=== PATIENT | female | born 1940 | race Caucasian/White ===

== ENCOUNTER 2025-04-22 12:56 | Outpatient (CLI) | payer MEDICARE, OTHER, SELFPAY ==
--- NOTE | ~2025-04-22 | CT_ITS ---
EXAMINATION: CT_LERTCHWO_CT DATE: 04/22/2025 13:46 INDICATION: Right hip osteoarthritis. Preoperative planning. TECHNIQUE: Computed tomography (CT) of the right hip was performed without intravenous contrast. Automated exposure control and iterative reconstruction technique were employed. The dose-length product was 1052.28 mGy-cm. COMPARISON: Right hip radiographs 06/20/2022 FINDINGS: There are no dilated loops of bowel. There is a 5.7 cm fibroid in the uterus. Alignment is normal. No fracture. There is severe lumbar spondylosis. There is severe right hip osteoarthritis and moderate left hip osteoarthritis. 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 IMPRESSION: 1. Severe right hip osteoarthritis and moderate left hip osteoarthritis. Reviewed, dictated and finalized at location E.
--- NOTE | 2025-04-22 13:14 | ECG_ITS ---
Test Date: 2025-04-22 13:26:40 Measurements Intervals [place] Rate: 65 P: 65 FL: 210 QRS: -7 QRSD: 114 T: 26 QT: 388 QTc: 406 Interpretive Statements SINUS RHYTHM WITH FIRST DEGREE AV BLOCK BORDERLINE ECG+ No previous ECG available for comparison Electronically Signed On 04-23-2025 15:48:33 CDT by Rock Salazar M.D.
[2025-04-22 13:56] LABS: Hematocrit 44.8 % (37.0-47.0); Hemoglobin 14.4 g/dL (12.0-15.0)
[2025-04-22 14:14] LABS: Albumin Level 3.7 g/dL (3.5-5.1); Estimated Glomerular Filt Rate > 60
== END 2025-04-22 12:57 | disposition home or self-care (01) ==
PROVIDERS: PCP Registered Nurse; Visit Provider Orthopaedic Surgery
DX: I50.9 Heart failure, unspecified (principal); M16.11 Unilateral primary osteoarthritis, right hip; Z01.818 Encounter for other preprocedural examination; M16.0 Bilateral primary osteoarthritis of hip
CPT/HCPCS: 36415; 73700; 82040; 82565; 85014; 85018; 93005

== ENCOUNTER 2025-06-16 09:25 | Outpatient (CLI) | payer MEDICARE, OTHER, SELFPAY ==
[2025-06-16 10:38] LABS: Hematocrit 44.7 % (37.0-47.0); Hemoglobin 14.5 g/dL (12.0-15.0); Immature Granulocyte Percent A 0.1 % (0-0.5); Lymphocytes Absolute Auto 3.12 K/mm3 (0.9-3.2); Mean Corpuscular HGB Conc 32.4 g/dl (32-36); Mean Corpuscular Hemoglobin 32.2 pg (26-34); Mean Corpuscular Volume 99.3 fl (80-100); Nucleated Red Blood Cells Absolute Auto 0.000 K/mm3 (0.0-0.012); Nucleated Red Blood Cells Perc 0.0 % (0.0-0.2); Platelet Count Result 267 k/mm3 (150-375); Red Blood Count 4.50 M/mm3 (4.2-5.4); White Blood Count 7.4 K/mm3 (4.5-10.0)
[2025-06-16 10:49] LABS: Albumin Level 3.9 g/dL (3.5-5.1)
[2025-06-16 10:51] LABS: Hemoglobin A1C 5.3 % (<5.7)
[2025-06-16 10:52] LABS: Anion Gap 4 mmol/L (4-12); Blood Urea Nitrogen 22 mg/dL (7-17); Calcium 8.9 mg/dL (8.4-10.2); Carbon Dioxide 31 mmol/L (22-30); Chloride 103 mmol/L (98-107); Estimated Glomerular Filt Rate > 60; Glucose 99 mg/dL (65-110); Potassium 4.0 mmol/L (3.4-5.0); Sodium 138 mmol/L (137-145)
[2025-06-16 11:58] LABS: MRSA (PCR) NOT DETECTED (NOT DETECTE)
== END 2025-06-16 09:26 | disposition home or self-care (01) ==
LOC: ANHSURGERY 09:26
PROVIDERS: Anesthesiology; PCP Registered Nurse; Visit Provider Orthopaedic Surgery
DX: M16.11 Unilateral primary osteoarthritis, right hip (principal); Z79.899 Other long term (current) drug therapy; Z01.818 Encounter for other preprocedural examination
CPT/HCPCS: 36415; 80048; 80307; 82040; 83036; 85025; 87641

== ENCOUNTER 2025-07-08 00:16 | Day surgery (SDC) | payer MEDICARE, OTHER, SELFPAY ==
[2025-06-16 09:46] VITALS: BP 154/77; PULSE 72; RESP 16; TEMP 36.5; O2SAT 98; BMI 35.6
--- NOTE | 2025-06-16 10:10 | PC.NURSE ---
[facility] has started construction of its new state of the art ER which will open Spring 2026. With this, we anticipate parking may be a challenge for some our surgical patients and families. Parking spaces are limited but are available for all Surgical, obstetrics, and ER patients sharing this lot. If you arrive and find you are having a hard time finding a parking space, please note that we understand the challenges, please drive around the hospital and park near Hospital Entrance 1. When you enter this entrance, you can ask a volunteer to direct or take you back to the surgical waiting area to check in. We appreciate everyone?s understanding of these expected challenges while we build for your future. Report to the Outpatient Waiting Room, entrance under the green pavilion located off [address], at time ___0800am____ on date __07/08/25 . Planned Procedure Time: __1000am .? Time changes happen often and if your time is changed the preop area will call you the afternoon before. - You and your visitor will be asked to self-screen and do not enter if you have any COVID symptoms. Please call surgeon if you need to reschedule. - A mask is optional within the hospital at this time. Patients may have clear liquids (water, carbonated beverages, clear teas, apple juice) until 3 hours prior to surgery with a maximum of 20 ounces. - No food from midnight until time of surgery and no smoking, or chewing tobacco (or any form of nicotine). No chewing gum, candy or mints. (07:00am) Take only the following medications with a SIP of water on the morning of surgery: Levothyroxine, Tylenol if needed DO NOT STOP ANY OF YOUR OTHER PRESCRIPTION MEDICATIONS PRIOR TO SURGERY EXCEPT THE FOLLOWING Hold all vitamins and supplements for 3 days per anesthesiologist. Medications to discontinue per physician NO ASPIRIN/MOTRIN/ADVIL/NSAIDS for [address] Rutledge Date to take last dose__06/30/25 Please no make-up, nail yakut, hairspray, perfume, deodorant, or body powder the day of surgery.? No jewelry (including any body piercings) or valuables the day of surgery, leave them at home.? Please take a shower or bath the night before, or the morning of, surgery with an antibacterial soap. GOLD DIAL ? Wear comfortable, loose fitting clothing.? Overnight bag, shoes, Robe, phone/Chrger - Jewelry must be removed prior to entering the operating room.? Rings and piercings that are not removed may be cut off. - The hospital will not accept responsibility for valuables.? - Please leave all valuables, including medications, at home the day of surgery. If you are going home after surgery, a licensed hook up driver must drive you home.? - NO public transportation without another adult if you receive anesthesia. - We recommend that an adult stay with you for 24 hours following discharge. - We also recommend that you do not drive, make important decision, drink alcoholic beverages, or take any drugs that were not prescribed by your health care provider for at least 24 hours after your discharge time. Follow any additional instructions given to you from your surgeon. Telephone instructions given to __Patient and asked if any additional questions and then verbalized understanding. Patient advised to call surgeon office or pre surgery nurse liaison [phone] if any additional questions.
[2025-07-08] VITALS (14 sets, daily range): BP systolic 106–177; BP diastolic 47–80; PULSE 58–85; RESP 12–20; TEMP 36.3–36.8; O2SAT 90–100
--- NOTE | ~2025-07-08 | XR_ITS ---
EXAMINATION: XR surgery orthopedic DATE: 07/08/2025 10:11 INDICATION: Intraoperative evaluation during right total hip arthroplasty TECHNIQUE: Frontal view of the right hip was obtained on 2 images. COMPARISON: None. FINDINGS: Intraoperative image demonstrate placement of a noncemented right total hip arthroplasty with intertrochanteric cerclage wire which is in near-anatomic alignment in the frontal projection. Acetabular component is affixed with at least 2 screws. No fractures identified. Lucent soft tissue gas is seen at the operative bed. IMPRESSION: 1. Right total hip arthroplasty with intertrochanteric cerclage wire in near- anatomic alignment. See procedure note for further detail. Reviewed, dictated and finalized at location A. AGENT IMPRESSION: 1. Right total hip arthroplasty with intertrochanteric cerclage wire in near-an atomic alignment. See procedure note for further detail.
--- NOTE | ~2025-07-08 | XR_ITS ---
EXAMINATION: XR hip RT min 2V, 07/08/2025 11:20 LECTURER IN COMPUTER SCIENCE HISTORY: POST OP RIGHT CUSTOM VAZQUEZ COMPARISON: No comparisons available. Findings: No acute fracture or malalignment. Right arthroplasty intact Soft tissues unremarkable. Impression: No acute fracture or malalignment. Reviewed, dictated and finalized at location P. URER IN COMPUTER SCIENCE Impression: No acute fracture or malalignment.
--- OUTSIDE RECORDS SUMMARY | 2025-07-08 00:19 | XMS_ITS | Encounter Summary ---
Author Organization [facility] Address [address] [place] [address] Care Team Providers Care Development Architect Name Role Phone Phuong Sol [facility] Primary Care Provider +1 [phone] Encounter Details Date Type Department Care Team (Latest Contact Info) Description 03/17/2025 Recyclebankt Message Enc [facility] [place] [phone] Mayra Doherty, SIL [address] [address] medication before test Social History Tobacco Use Types Packs/Day Years Used Date Smoking Tobacco: Never Smokeless Tobacco: Never Alcohol Use Standard Drinks/Week Comments Yes 0 (1 standard drink = 0.6 oz pur e alcohol) occasional AUDIT-C Answer Date Recorded Frequency of Alcohol Consumption Never 11/13/2018 Average Number of Drinks Not on file 019 Frequency of Binge Drinking Not on file 09/2018 PHQ-2 Answer Date Recorded Patient Health Questionnaire-2 Score 0 12/24/2024 Comments No Sex and Gender Information Value Date Recorded Sex Assigned at Female 08/28/2024 8:36 AM HOT PLATE PRESS OPERATOR Legal Sex Female 5:43 PM CDT Gender Identity Not on file Sexual Orientation Not on file documented as of this encounter Plan of Treatment Upcoming Encounters Date Type Department Care Team (Late st Contact Info) Description 07/25/2025 10:40 AM HOT PLATE PRESS OPERATOR Office Visit [facility] [address] [place] [phone] Phuong Sol LINT CLEANER [address] [place] [address] 05/21/2026 9:45 AM CDT Office Visit [facility] [address] [place] [phone] Jose Alberto Caicedo MD [facility] [address] [place] [address] documented as of this encounter Visit Diagnoses Not on filedocumented in this encounter Additional Health Concerns Assessment Noted Time PHQ-9 Depression Total Score: 2 06/08/20 21 2:13 PM CDT documented as of this encounter Care Teams Development Architect Relationship Specialty Start Date End Date Phuong Sol FNP [address] [facility] [place] [address] PCP - General Nurse Practitioner Family 02/18/20 documented as of this encounter
--- OUTSIDE RECORDS SUMMARY | 2025-07-08 00:19 | XMS_ITS | Encounter Summary ---
Author Organization [facility] Address [address] [place] [address] Care Team Providers Care Autism Tutor Name Role Phone Phuong Sol [facility] Primary Care Provider [phone] [phone] Encounter Details Date Type Department Care Team (Late st Contact Info) Description 06/25/2025 [facility] Message Enc [facility] [address] [place] [address] Phuong Sol FNP [address] [place], [place] [phone] CT chest scan without contrast Social History Tobacco Use Types Packs/Day Years Used Date Smoking Tobacco: Never Smokeless Tobacco: Never Alcohol Use Standard Drinks/Week Comments Yes 0 (1 standard drink = 0.6 oz pur e alcohol) occasional AUDIT-C Answer Date Recorded Frequency of Alcohol Consumption Never 11/13/2018 Average Number of Drinks Not on file Frequency of Binge Drinking Not on file 09/2018 PHQ-2 Answer Date Recorded Patient Health Questionnaire-2 Score 0 12/24/2024 Comments No Sex and Gender Information Value Date Recorded Sex Assigned at Female 08/28/2024 8:36 AM SALVAGE MECHANIC Legal Sex Female 5:43 PM CDT Gender Identity Not on file Sexual Orientation Not on file documented as of this encounter Progress Notes * SHANNAN Joshua - 06/27/2025 7:08 AM CST There is an active order for CT chest ordered on 03/26, let me know if there is anything else I needto do AGE MECHANIC * Sada Navarro LPN - 06/26/2025 11:08 AM CST I am not seeing a order for CT chest scan without contrast. Do I need to place a order? Dx? AGE MECHANIC documented in this encounter Plan of Treatment Upcoming Encounters Date Type Department Care Team (Late st Contact Info) Description 07/25/2025 10:40 AM SALVAGE MECHANIC Office Visit [facility] [address] [place], [place] [phone] Phuong Sol FNP [address] [place] [address] 05/21/2026 9:45 AM CDT Office Visit [facility] [address] [facility] [address] [place] [phone] Jose Alberto Caicedo MD [address] [address] documented as of this encounter Visit Diagnoses Not on filedocumented in this encounter Additional Health Concerns Assessment Noted Time PHQ-9 Depression Total Score: 2 06/08/20 21 2:13 PM CDT documented as of this encounter Care Teams Autism Tutor Relationship Specialty Start Date End Date Phuong Sol FNP [address] [facility] [facility] [address] [place], [place] [phone] PCP - General Nurse Practitioner Family 02/18/20 documented as of this encounter
--- OUTSIDE RECORDS SUMMARY | 2025-07-08 00:19 | XMS_ITS | Encounter Summary ---
Author Organization [facility] Address [address] [place] [address] Care Team Providers Care Organic Chemist Name Role Phone Phuong Sol [facility] Primary Care Provider +1 [phone] Encounter Details Date Type Department Care Team (Late st Contact Info) Description 06/05/2022 K[employer]ure Audiot Message Enc [facility] [address] [place] [address] Phuong Sol [facility] [address] [place], [place] [phone] hip x-ray Social History Tobacco Use Types Packs/Day Years Used Date Smoking Tobacco: Never Smokeless Tobacco: Never Alcohol Use Standard Drinks/Week Comments Yes 0 (1 standard drink = 0.6 oz pur e alcohol) occasional AUDIT-C Answer Date Recorded Frequency of Alcohol Consumption Never 11/13/2018 Average Number of Drinks Not on file 019 Frequency of Binge Drinking Not on file 09/2018 PHQ-2 Answer Date Recorded PHQ-2 Score - If the patient scores above 3, please move on to questions 3-9 2 06/08/2021 Comments No Sex and Gender Information Value Date Recorded Sex Assigned at Female 08/28/2024 8:36 AM LANDSCAPE SPECIALIST Legal Sex Female 5:43 PM CDT Gender Identity Not on file Sexual Orientation Not on file COVID-19 Exposure Response Date Recorded In the last 10 days, have yo u been in contact with someone who was confirmed or suspected to have Coronavirus/COVID-19? No / Unsure 05/23/2022 12:20 PM CDT documented as of this encounter Plan of Treatment Upcoming Encounters Date Type Department Care Team (Late st Contact Info) Description 07/25/2025 10:40 AM LANDSCAPE SPECIALIST Office Visit [facility] includes [facility] [address] [place] [address] Phuong Sol FNP [address] [place] [address] 05/21/2026 9:45 AM CDT [facility] [address] [place] [address] Jose Alberto Caicedo MD [address] [address] documented as of this encounter Visit Diagnoses Not on filedocumented in this encounter Additional Health Concerns Assessment Noted Time PHQ-9 Depression Total Score: 2 06/08/20 21 2:13 PM CDT documented as of this encounter Care Teams Organic Chemist Relationship Specialty Start Date End Date Phuong Sol FNP [address] [place] [address] PCP - General Nurse Practitioner Family 02/18/20 documented as of this encounter
--- OUTSIDE RECORDS SUMMARY | 2025-07-08 00:19 | XMS_ITS | Encounter Summary ---
Author Organization [facility] Address [address] [place] [address] Care Team Providers Care Rides Supervisor Name Role Phone Phuong Sol [facility] Primary Care Provider [phone] [phone] Encounter Details Date Type Department Care Team (Late Contact Info) Description 01/04/2023 CITIA Message Enc [facility] [address] [place] [address] Zhang, [facility] Provider lab results Social History Tobacco Use Types Packs/Day Years [...] Sex Assigned at Female 08/28/2024 8:36 AM YARD CONDUCTOR Legal Sex Female 5:43 PM CDT Gender Identity Not on file Sexual Orientation Not on file COVID-19 Exposure Response Date Recorded In the last 10 days, have yo u been in contact with someone who was confirmed or suspected to have Coronavirus/COVID-19? No / Unsure 12/19/2022 11:14 AM CDT documented as of this encounter Plan of Treatment Upcoming Encounters Date Type Department Care Team (Late Contact Info) Description 07/25/2025 10:40 AM YARD CONDUCTOR Office Visit [address] [place] [address] Phuong Sol FNP [address] [place] [address] 05/21/2026 9:45 AM CDT Office Visit [facility] [address] [place] [phone] Jose Alberto Caicedo MD [address] [address] documented as of this encounter Visit Diagnoses Not on filedocumented in this encounter Additional Health Concerns Assessment Noted Time PHQ-9 Depression Total Score: 2 06/08/20 21 2:13 PM CDT documented as of this encounter Care Teams Rides Supervisor Relationship Specialty Start Date End Date Phuong Sol FNP [address] [facility] [place] [address] PCP - General Nurse Practitioner Family 02/18/20 documented as of this encounter
--- OUTSIDE RECORDS SUMMARY | 2025-07-08 00:19 | XMS_ITS | Encounter Summary ---
Author Organization [facility] Address [address] [place] [address] Care Team Providers Care Tin Pot Operator Name Role Phone Phuong Sol [facility] Primary Care Provider [phone] [phone] Encounter Details Date Type Department Care Team (Late st Contact Info) Description 07/01/2025 Results Follow-Up [address] [place] [address] [address]uong Sol [address] [place] [phone] COMPREHENSIVE METABOLIC PANEL, THYROID STIM HORMONE TSH, LIPID PANEL, Additional followed-up results: 2 Social History Tobacco Use Types Packs/Day Years [...] Sex Assigned at Female 08/28/2024 8:36 AM SORT SUPERVISOR Legal Sex Female 5:43 PM CDT Gender Identity Not on file Sexual Orientation Not on file documented as of this encounter Plan of Treatment Upcoming Encounters Date Type Department Care Team (Late st Contact Info) Description 07/25/2025 10:40 AM SORT SUPERVISOR Office Visit [address] [place] [address] Phuong Sol FNP [address] [facility] [place] [address] 05/21/2026 9:45 AM CDT Office Visit [facility] [address] [place] [address] Jose Alberto Caicedo MD [place] [place] [address] Scheduled Orders Name Type Priority Associated Diagnoses Orde r Schedule VITAMIN B-12 Lab Routine B12 deficiency Expected: 10/01/2025, Expires: 10/01/2026 documented as of this encounter Visit Diagnoses Diagnosis B12 deficiency- Primary Other B-complex deficiencies documented in this encounter Additional Health Concerns Assessment Noted Time PHQ-9 Depression Total Score: 2 06/08/20 21 2:13 PM CDT documented as of this encounter Care Teams Tin Pot Operator Relationship Specialty Start Date End Date Phuong Sol FNP [address] [facility] [place] [address] PCP - General Nurse Practitioner Family 02/18/20 documented as of this encounter
--- OUTSIDE RECORDS SUMMARY | 2025-07-08 00:19 | XMS_ITS | Encounter Summary ---
Author Organization [facility] Address [address] [place] [address] Care Team Providers Care Municipal Court Magistrate Name Role Phone Phuong Sol [facility] Primary Care Provider [phone] [phone] Encounter Details Date Type Department Care Team (Late st Contact Info) Description 02/17/2021 Litepointt Message Enc [facility] [address] [address] Phuong Sol [facility] [address] [place], [place] [phone] RE: Question Social History Tobacco Use Types Packs/Day Years Used Date Smoking Tobacco: Never Smokeless Tobacco: Never Alcohol Use Standard Drinks/Week Comments No 0 (1 standard drink = 0.6 oz pur e alcohol) AUDIT-C Answer Date Recorded Frequency of Alcohol Consumption Never 11/13/2018 Average Number of Drinks Not on file 019 Frequency of Binge Drinking Not on file 09/2018 PHQ-2 Answer Date Recorded PHQ-2 Score - If the patient scores above 3, please move on to questions 3-9 2 10/08/2020 Comments No Sex and Gender Information Value Date Recorded Sex Assigned at Female 08/28/2024 8:36 AM ELECTRONIC DEVICE REPAIRER Legal Sex Female 5:43 PM CDT Gender Identity Not on file Sexual Orientation Not on file documented as of this encounter Progress Notes * Tasneem Frey LPN - 02/17/2021 11:32 AM CDTFrom: Shelley Cosme File To: Phuong Sol Sent: 02/17/2021 9:50 AM CDT Subject: Question I'm suppose to have a blood test in February and I was wondering if it was a fasting test. I hope the order was through February. Thanks Shelley documented in this encounter Plan of Treatment Upcoming Encounters Date Type Department Care Team (Late st Contact Info) Description 07/25/2025 10:40 AM ELECTRONIC DEVICE REPAIRER Office Visit [facility] [address] [place] [address] Phuong Sol FNP [address] [place] [address] 05/21/2026 9:45 AM CDT Office Visit [facility] [address] [place] [address] Jose Alberto Caicedo MD [address] [address] documented as of this encounter Visit Diagnoses Not on filedocumented in this encounter Additional Health Concerns Infection Onset Date Last Indicated Resolved Time COVID-19 Rule Out 07/12/2021 07/12/2021 07/12/2021 1:34 PM ELECTRONIC DEVICE REPAIRER COVID-19 Rule Out 07/13/2021 07/13/2021 07/13/2021 6:58 PM ELECTRONIC DEVICE REPAIRER Assessment Noted Time PHQ-9 Depression Total Score: 8 10/08/19 21 2:37 PM ELECTRONIC DEVICE REPAIRER documented as of this encounter Care Teams Municipal Court Magistrate Relationship Specialty Start Date End Date Phuong Sol FNP [address] [place], [place] [phone] PCP - General Nurse Practitioner Family 02/18/20 documented as of this encounter
--- OUTSIDE RECORDS SUMMARY | 2025-07-08 00:19 | XMS_ITS | Encounter Summary ---
Author Organization [facility] Address [address] [place] [address] Care Team Providers Care Payment Manager Name Role Phone Phuong Sol [facility] Primary Care Provider [phone] [phone] Encounter Details Date Type Department Care Team (Late st Contact Info) Description 05/17/2021 Forerun Message Enc [facility] [address] [place] [address] Phuong Sol [facility] [address] [place], [place] [phone] RE: Medication Questions Social History Tobacco Use Types Packs/Day Years [...] Sex Assigned at Female 08/28/2024 8:36 AM WOVEN BLIND LOOM TENDER Legal Sex Female 5:43 PM CDT Gender Identity Not on file Sexual Orientation Not on file documented as of this encounter Progress Notes * Rochelle Raza - 05/18/2021 2:35 PM CDT Patient scheduled appointment, done * Rochelle Raza - 05/18/2021 2:28 PM CDT Called patient to schedule appointment, had to leave message * Sada Aguilar LPN - 05/18/2021 2:21 PM CDT Forward to Thu (PSR) to schedule. Please call and schedule. Thank you! documented in this encounter Plan of Treatment Upcoming Encounters Date Type Department Care Team (Late st Contact Info) Description 07/25/2025 10:40 AM WOVEN BLIND LOOM TENDER Office Visit [facility] [address] [facility] [address] [place], [place] [phone] Phuong Sol FNP [facility] [address] [place], [place] [phone] 05/21/2026 9:45 AM CDT Office Visit [facility] [place] [phone] Jose Alberto Caicedo MD [address] [address] documented as of this encounter Visit Diagnoses Not on filedocumented in this encounter Additional Health Concerns Infection Onset Date Last Indicated Resolved Time COVID-19 Rule Out 07/12/2021 07/12/2021 07/12/2021 1:34 PM WOVEN BLIND LOOM TENDER COVID-19 Rule Out 07/13/2021 07/13/2021 07/13/2021 6:58 PM WOVEN BLIND LOOM TENDER Assessment Noted Time PHQ-9 Depression Total Score: 8 10/08/19 21 2:37 PM WOVEN BLIND LOOM TENDER documented as of this encounter Care Teams Payment Manager Relationship Specialty Start Date End Date Phuong Sol FNP [address] [place] [address] [place], [place] [phone] PCP - General Nurse Practitioner Family 02/18/20 documented as of this encounter
--- OUTSIDE RECORDS SUMMARY | 2025-07-08 00:19 | XMS_ITS | Encounter Summary ---
Author Organization [facility] Address [address] [place] [address] Care Team Providers Care Circular Saw Operator Name Role Phone Phuong Sol [facility] Primary Care Provider [phone] [phone] Encounter Details Date Type Department Care Team (Late st Contact Info) Description 05/01/2025 MyChart Message Enc [facility] [address] [facility] [address] [address] [place] [phone] Phuong Sol [address] [place] [phone] covid vaccine Social History Tobacco Use Types Packs/Day Years [...] Sex Assigned at Female 08/28/2024 8:36 AM CAFETERIA ASSOCIATE Legal Sex Female 5:43 PM CDT Gender Identity Not on file Sexual Orientation Not on file documented as of this encounter Plan of Treatment Upcoming Encounters Date Type Department Care Team (Late Contact Info) Description 07/25/2025 10:40 AM CAFETERIA ASSOCIATE Office Visit [facility] [address] [facility] [address] [place] [phone] Phuong Sol [address] [place] [address] 05/21/2026 9:45 AM CDT Office Visit [facility] [address] [place] [address] Jose Alberto Caicedo MD [facility] [address] [place] [address] documented as of this encounter Visit Diagnoses Not on filedocumented in this encounter Additional Health Concerns Assessment Noted Time PHQ-9 Depression Total Score: 2 06/08/20 21 2:13 PM CDT documented as of this encounter Care Teams Circular Saw Operator Relationship Specialty Start Date End Date Phuong Sol FNP [address] [place] [address] PCP - General Nurse Practitioner Family 02/18/20 documented as of this encounter
--- OUTSIDE RECORDS SUMMARY | 2025-07-08 00:19 | XMS_ITS | Clinical Summary ---
Author Organization [facility] Address [address] [place] [address] Care Team Providers Care Bias Machine Operator Name Role Phone MiriamPhuong moffett [facility] Primary Care Provider [phone] [phone] Allergies Active Allergy Reactions Criticality Noted Date Comments Lidocaine Dizziness,Fatigue 12/20/2011 Medications latanoprost (XALATAN) 0.005 % ophthalmic solution 3 Active rosuvastatin (CRESTOR) 5 MG tabletIndications: Elevated lipoprotein(a) 1 tablet po twice per week before bed 90 tablet 3 4 Active omeprazole (PRILOSEC) 20 MG capsuleIndications :Gastroesophageal reflux disease without esophagitis Take 1 capsule (20 mg total) by mouth daily. 100 capsule 4 4 Active levothyroxine (SYNTHROID) 125 MCG tabletIndications: Primary hypothyroidism Take 1 tablet (125 mcg total) by mouth daily. 100 tablet 4 4 Active Multiple Vitamins-Minerals (PRESERVISION AREDS 2 OR) Active nitroglycerin (NITROSTAT) 0.[address] 1 tablet (0.4 mg total) under the tongue every 5 (five) minutes as needed. Maximum of 3 doses. 30 tablet 3 5 01/24/20 26 Active metoprolol tartrate (LOPRESSOR) 100 MG tablet Take 1 tablet (100 MG) 1 hour prior to CCTA 03/18/2025 1 tablet 5 Active potassium chloride CR (KLOR-CON M) 10 MEQ tabletIndications: Diuretic-induced hypokalemia Take 1 tablet by mouth once daily 90 tablet 5 Active losartan-hydroCHLO ROthiazide (HYZAAR) 50-12.5 MG tablet Take 1 tablet by mouth daily. 90 tablet 3 5 Active Cyanocobalamin 1000 MCG SL TabIndications:B12 deficiency Place 1,000 mcg under the tongue daily. 90 tablet 5 Active losartan-hydroCHLO ROthiazide (HYZAAR) 50-12.5 MG tablet Take 1 tablet by mouth daily. 90 tablet 5 06/29/20 25 Discontin ued(Reord er) Active Problems Problem Noted Date Diagnosed Date Venous insufficiency 12/25/2023 Chronic heart failure with p reserved ejection fraction (HFpEF) 12/14/2022 Assessment & Plan (12/14/2022 1:47 PM CDT): Plan to reassess the patient's filling pressures with her chronic HFpEF with proBNP and echocardiography. Patient appears euvolemic on exam and I would estimate her [place] [employer] functional class I-II. Patient's historical peripheral edema appears to be more likely related to dependent edema possibly exacerbated by venous stasis a higher dose of amlodipine. If the patient's proBNP is elevated consideration for an aldosterone antagonist will be given. Class 1 obesity due to exces s calories with serious comorbidity and body mass index (BMI) of 34.0 to 34.9 in adult 04/16/2019 Essential hypertension 12/21/2012 Overview (11/13/2018): Date Onset: 12/21/2012 Date Onset: 11/10/2015 Date Onset: 12/17/2015 Assessment & Plan (12/14/2022 7:29 AM CDT): Upon review of the patient's blood pressures, they have shown adequate control on his current medical regimen. No additional changes suggested. Vitamin D deficiency 07/10/2012 Overview (11/13/2018): Date Onset: 07/10/2012 Asthma 12/20/2011 Overview (11/13/2018): Date Onset: 12/20/2011 Hyperlipidemia 12/20/2011 Hypothyroidism 12/20/2011 Resolved Problems Problem Noted Date Diagnosed Date Resolved Date Nausea and vomiting 07/05/2016 04/16/20 19 Encounter for preventive health examination 06/29/2016 04/16/2019 Edema 12/21/2012 12/25/2023 Overview (11/13/2018): Date Onset: 12/21/2012 Encounter for long-term (cur rent) use of other medications 12/21/2012 04/16/2019 Overview (11/13/2018): Date Onset: 12/21/2012 Encounters Date Type Department Care Team Description 07/01/2025 Results Follow-Up [facility] [address] [place] [address] Phuong Sol FNP COMPREHENSIVE METABOLIC PANEL, THYROID STIM HORMONE TSH, LIPID PANEL, Additional followed-up results: 2 06/30/2025 8:00 AM SENIOR VISUAL DESIGNER - 06/30/2025 11:59 PM SENIOR VISUAL DESIGNER Hospital Encounter [facility] [address] [address] Phuong Sol FNP Discharge Disposition: Home or Self Care (Routine Discharge) 06/30/2025 Travel 06/25/2025 MyChart Message Enc [address] [place] [address] chest scan without contrast 06/19/2025 Telephone [facility] [place] [address] [place] [address] Mayra Doherty NP Information ([facility] 06/12/2025 9:30 AM CDT Office [facility] [address] [phone] Mayra Doherty NP Follow Up (3-4 month follow up, no concerns, having hip surgery in June) 06/12/2025 Travel 06/10/2025 MyChart Message Enc [address] [place] [place] [address] chest scan without contrast 05/01/2025 MyChart Message Enc [address] [address] [place] [address] Phuong Sol FNP covid vaccine 04/23/2025 Scan [facility] Scanned, [facility] 04/22/2025 Scan [facility] Scanned, [facility] CT (SCAN) 04/08/2025 Results Follow-Up [facility] [place] [address] [place] [address] Di Souza, RN FFR HEARTFLOW CTA CORONARY POST PROCESSING from Last 3 Months Immunizations Immunization Administration Dates Next Due Arexvy Respiratory Syncytial Virus (RSV, adjuvanted) 0.5 mL, PF 06/29/2023 Fluzone High Dose (IIV, triv alent, 0.5mL) 06/17/2025,05/28/2024,06/04/2019,2017,06/23/2017,06/10/2016,07/13/2015 Fluzone High Dose - >Age 65 (Prefilled Syringe) 06/13/2023,06/29/2022,06/08/2021,2019,06/04/2019 Influenza (Generic) 06/03/2014 Influenza Adult (Generic) 06/04/2019,12/2017,06/23/2017,2015,07/13/2015 MODERNA COVID-19 (12+) MRNA, LNP-S, PF, 100 MCG/ 0.5 ML DOSE 09/23/2020 MODERNA COVID-19 (12+), MRNA , LNP-S, PF, 50 MCG/0.5 ML (SPIKEVAX) 05/06/2025 MODERNA COVID-19 (HEALTH CARE LIAISON ALISA [facility]), MRNA, LNP-S, PF, 50 MCG/ 0.25 ML DOSE 12/15/2021 PFIZER COVID-19 (12+) MRNA, LNP-S, PF, BEKA-SUCROSE, 30 MCG/0.3 ML (COMIRNATY) 01/17/2025,04/30/2024 Pneumococcal (Generic) 07/13/2015 Pneumococcal (Pneumovax 23) 06/14/2017, 6,06/15/2006 Pneumococcal (Prevnar 13) 07/13/2015 Shingrix 10/02/2024,07/30/2024 Varicella Vaccine 02/09/2012 Zoster (Zostavax) [address] Unt/0.65Ml 02/09/2012 Family History Medical History Relation Comments None Brother 1 down syndrome Brother 2 None Father Stroke Mother Uterine Cancer Sister 1 Cancer Sister 3 Hypertension Sister 4 Relation Status Comments Brother 1 Alive Brother 2 Alive Father Mother Sister 1 Sister 2 Alive Sister 3 Alive Sister 4 Alive Social History Tobacco Use Types Packs/Day Years Used Date Smoking Tobacco: Never Smokeless Tobacco: Never Tobacco Cessation:Counseling Given: No Alcohol Use Standard Drinks/Week Comments Yes 0 [...] Sex Assigned at Female 08/28/2024 8:36 AM SENIOR VISUAL DESIGNER Legal Sex Female 5:43 PM CDT Gender Identity Not on file Sexual Orientation Not on file Last Filed Vital Signs Vital Sign Reading Time Taken Comments Blood Pressure 122/72 06/12/2025 9:34 AM CDT Pulse 70 06/12/2025 9:31 AM CDT Temperature 36.9 C (98.4 F) 12/24/2024 1:31 PM CDT Respiratory Rate 18 06/12/2025 9:31 AM CDT Oxygen Saturation 97% 06/12/2025 9:31 AM CDT Inhaled Oxygen Concentration - - Weight 90.7 kg (200 lb) 06/12/2025 9:31 AM CDT Height 160 cm (5' 3) 06/12/2025 9:31 AM CDT Body Mass Index 35.43 06/12/2025 9:31 AM CDT Plan of Treatment Upcoming Encounters Date Type Department Care Team (Late st Contact Info) Description 07/25/2025 10:40 AM SENIOR VISUAL DESIGNER Office Visit [facility] [address] [place] [address] Phuong Sol, HERB DIGGER [address] [place], [place] [id number] 05/21/2026 9:45 AM CDT Office Visit [facility] [address] [phone] Jose Alberto Caicedo MD [address] [place] [address] Health Maintenance Due Date Last Done Comments DTaP, Tdap and Td Vaccines (1 - Tdap) 11/03/1959 Annual Medicare Wellness Visit 11/03/2004 COVID-19 Vaccine ( season) 2025 05/06/2025, 01/17/2025, 04/30/2024, Additional history exists Pneumococcal Vaccine: 50+ Years Completed 06/14/2017, 08/03/2016, 07/13/2015, Additional history exists RSV Immunization or 60+ Years Completed 06/29/2023 Zoster Vaccines Completed 10/02/2024, 07/14, 02/09/2012 PHQ-2 (Physician [place]) Completed 12/24/2024 Influenza Adult Completed 06/17/2025, 05/14, 06/13/2023, Additional history exists Hepatitis A Vaccines Aged Out No long er eligible based on patient's age to complete this topic Meningococcal B Vaccine Aged Out No l onger eligible based on patient's age to complete this topic Meningococcal Vaccine Aged Out No ginny kelley eligible based on patient's age to complete this topic RSV Immunizations Under 20 Months Aged Out No longer eligible based on patient's age to complete this topic Procedures Procedure Name Priority Date/Time Associated Diagnosis Comments VITAMIN B-12 Routine 06/30/2025 8:05 AM SENIOR VISUAL DESIGNER Gastroesophageal reflux disease without esophagitis HEMOGLOBIN, GLYCOSYLATED Routine 06/30/2025 8:05 AM SENIOR VISUAL DESIGNER Hyperglycemia LIPID PANEL Routine 06/30/2025 8:05 AM SENIOR VISUAL DESIGNER Elevated lipoprotein(a) THYROID STIM HORMONE TSH Routine 06/30/2025 8:05 AM SENIOR VISUAL DESIGNER Primary hypothyroidism COMPREHENSIVE METABOLIC PANEL Routine 06/30/2025 8:05 AM SENIOR VISUAL DESIGNER Elevated lipoprotein(a) CT GENERIC 04/22/2025 from Last 3 Months Results * (ABNORMAL) VITAMIN B-12 (06/30/2025 8:05 AM SENIOR VISUAL DESIGNER) [facility] VITAMIN B12 S/P/B 248(L) 254 - 1,320 PG/ML 06/30/2025 2:59 PM SENIOR VISUAL DESIGNER [facility] 06/30/2025 8:05 AM SENIOR VISUAL DESIGNER Phuong Sol [facility] Final Res ult [facility] [address] [place] [address], [place] [phone] * THYROID STIM HORMONE TSH (06/30/2025 8:05 AM SENIOR VISUAL DESIGNER) [facility] TSH 1.510 0.358 - 3.74 uIU/ML 06/30/2025 2:59 PM SENIOR VISUAL DESIGNER [facility] Comment: HIGH DOSES OF BIOTIN MAY INTERFERE WITH THIS TEST RESULT. CORRELATION TO CLINICAL HISTORY AND PRESENTATION RECOMMENDED. 06/30/2025 8:05 AM SENIOR VISUAL DESIGNER Phuongbaldemar Sol [facility] Final Res ult [facility] [address] [place] [address], [place] [phone] * LIPID PANEL (06/30/2025 8:05 AM SENIOR VISUAL DESIGNER) CHOLESTEROL 155 <200 MG/DL 06/30/2025 2:59 PM SENIOR VISUAL DESIGNER [facility] TRIGLYCERIDES 102 <150 MG/DL 06/30/2025 2:59 PM [facility] HDL 56 >40.0 MG/DL 06/30/2025 2:59 PM SENIOR VISUAL DESIGNER [facility] LDL (CALCULATED) 79 <100 MG/DL 06/30/20 2:59 PM [facility] Comment:CALCULATED USING THE FRIEDEWALD EQUATION NON HDL CHOLESTEROL 99 <130 MG/DL 06/30 2:59 PM [facility] CHOL/HDL RATIO 2.8 0.0 - 4.5 06/30/2025 2:59 PM [facility] VLDL CALCULATION 20 5 - 55 MG/DL 06/30/2025 2:59 PM [facility] LIPID INTERPRETATION 06/30/2025 2:59 PM [facility] Comment: NIH CONCENSUS REPORT RECOMMENDATIONS: ADULT CHILD LOW RISK: CHOLESTEROL <200 <170 TRIGLYCERIDE <150 --- HDL >=60 --- LDL <100 <110 BORDERLINE: CHOLESTEROL 200-239 170-199 TRIGLYCERIDE 150-199 --- HDL 40-59 --- LDL 100-159 110-129 HIGH RISK: CHOLESTEROL >=240 >=200 TRIGLYCERIDE >=200 --- HDL <40 --- LDL >=160 >=130 06/30/2025 8:05 AM SENIOR VISUAL DESIGNER us Phuong Sol [facility] Final Res ult [facility] [address] [place] [address], [place] [phone] * HEMOGLOBIN, GLYCOSYLATED (06/30/2025 8:05 AM SENIOR VISUAL DESIGNER) HGB A1C 5.5 <5.7 % 06/30/2025 2:48 PM [facility] Comment: ADA GUIDELINES 2010 5.7 TO 6.4% INCREASED RISK OF DIABETES > OR = 6.5% CONSISTENT WITH DIABETES ESTIMATED AVG GLUCOSE 111 mg/dL 06/30/2025 2:48 PM [facility] 06/30/2025 8:05 AM SENIOR VISUAL DESIGNER Phuong Sol [facility] Final Res ult [facility] [address] [place] [address], * (ABNORMAL) COMPREHENSIVE METABOLIC PANEL (06/30/2025 8:05 AM SENIOR VISUAL DESIGNER) GLUCOSE 99 70 - 99 MG/DL 06/30/2025 8:44 AM [facility] BUN 23(H) 7 - 18 MG/DL 06/30/2025 8:44 AM [facility] CREATININE S/P/B 0.81 0.50 - 1.20 MG/DL 06/30/2025 8:44 AM [facility] SODIUM S/P/B 139 136 - 145 MMOL/L 06/30/2025 8:44 AM SENIOR VISUAL DESIGNER [facility] POTASSIUM S/P/B 4.2 3.5 - 5.1 MMOL/L 06/30/2025 8:44 AM [facility] CHLORIDE S/P/B 104 100 - 108 MMOL/L 06/30/2025 8:44 AM [facility] CO2 28.8 21.0 - 32.0 MMOL/L 06/30/2025 8:44 AM [facility] CALCIUM S/P/B 9.2 8.5 - 10.1 MG/DL 06/30/2025 8:44 AM [facility] BILIRUBIN TOTAL S/P/B 0.6 0.2 - 1.2 MG/DL 06/30/2025 8:44 AM SENIOR VISUAL DESIGNER [facility] Comment: THIS ASSAY IS NOT RECOMMENDED FOR PATIENTS UNDERGOING TREATMENT WITH ELTROMBOPAG DUE TO THE POTENTIAL FOR FALSELY ELEVATED RESULTS. TOTAL PROTEIN S/P/B 7.6 6.4 - 8.2 G/DL 06/30/2025 8:44 AM SENIOR VISUAL DESIGNER [facility] ALBUMIN S/P/B 3.0(L) 3.4 - 5.0 G/DL 06/30/2025 8:44 AM SENIOR VISUAL DESIGNER [facility] AST 17 15 - 37 U/L 06/30/2025 8:44 AM SENIOR VISUAL DESIGNER [facility] ALT 13(L) 14 - 55 U/L 06/30/2025 8:44 AM [facility] ALKALINE PHOSPHATASE S/P/B 71 50 - 136 U/L 06/30/2025 8:44 AM [facility] ANION GAP 6.2 5.0 - 15.0 MMOL/L 06/30/2025 8:44 AM [facility] BUN CREATININE RATIO 28.4(H) 6 - 26 06/30/2025 8:44 AM [facility] A/G RATIO 0.7(L) 1.0 - 2.5 RATIO 06/30/2025 8:44 AM [facility] GFR ESTIMATE 71(L) >90 ML/MIN/1.7 3 M2 06/30/2025 8:44 AM [facility] Comment: NOTE: eGFR is not calculated for patients <18 years of age. This is an estimated GFR calculation using the new CKD EPI creatinine equation without race and so does not require a correction factor for race. This estimated GFR should not be used for calculating drug doses. 06/30/2025 8:05 AM SENIOR VISUAL DESIGNER us Phuong Sol [facility] Final Res ult [facility] [address] [address], [place] * CT GENERIC (04/22/2025) Anatomical Region Laterality Modality Other 04/22/2025 us [facility] Scanned SCANNING Final Resu lt from Last 3 Months Insurance MEDICARE [facility] Advance Directives Documents on File Type Date Recorded Patient Zipper Trimmer Expl anation Advance Directives and Living Will 05/22/2019 12:00 AM ADVANCED DIRECTIVES Advance Directives and Living Will 04/24/2019 12:00 AM ADVANCED DIRECTIVES Advance Directives and Living Will 01/17/2018 12:00 AM ADVANCED DIRECTIVES Care Teams Bias Machine Operator Relationship Specialty Start Date End Date Phuong Sol FNP [address] [place] [address] PCP - General Nurse Practitioner Family 02/18/20
--- OUTSIDE RECORDS SUMMARY | 2025-07-08 00:19 | XMS_ITS | Encounter Summary ---
Author Organization [facility] Address [address] [place] [address] Care Team Providers Care Radial Drill Press Operator Name Role Phone Phuong Sol [facility] Primary Care Provider [phone] Encounter Details Date Type Department Care Team (Late st Contact Info) Description 03/29/2025 [employer] Message [facility] [place] [address] Jose Alberto Caicedo MD [address] [address] test results Social History Tobacco Use Types Packs/Day [...] Sex Assigned at Female 08/28/2024 8:36 AM FINISHING POWDER PRESS OPERATOR Legal Sex Female 5:43 PM CDT Gender Identity Not on file Sexual Orientation Not on file documented as of this encounter Progress Notes * Jose Alberto Caicedo MD - 04/08/2025 3:26 PM CDT Negative FFR, low CV risk for hip surgery, OK to proceed. * Jose Alberto Caicedo MD - 04/06/2025 7:40 PM CDT Just FYI, it seems that an appointment is created for the FFR, b/c they need to link the billing to an appointment, but it actually is just processing of the previous CT data. * Mayra Doherty NP - 04/04/2025 3:18 PM CDT You reply is correct, though she may have gotten a call for the CT that is ordered for lung nodule follow up. Not sure. Either way, she doesn't need it either. Whoever ordered the lung follow up can use the most recent CT we just did for the heart. documented in this encounter Plan of Treatment Upcoming Encounters Date Type Department Care Team (Late st Contact Info) Description 07/25/2025 10:40 AM FINISHING POWDER PRESS OPERATOR Office Visit [facility] [address] [place] [phone] Phuong Sol FNP [address] [place] [address] 05/21/2026 9:45 AM CDT [facility] [address] [place] [phone] Jose Alberto Caicedo MD [address] [address] documented as of this encounter Visit Diagnoses Not on filedocumented in this encounter Additional Health Concerns Assessment Noted Time PHQ-9 Depression Total Score: 2 06/08/20 21 2:13 PM CDT documented as of this encounter Care Teams Radial Drill Press Operator Relationship Specialty Start Date End Date Phuong Sol FNP [address] [place] [address] [place] [address] PCP - General Nurse Practitioner Family 02/18/20 documented as of this encounter
--- OUTSIDE RECORDS SUMMARY | 2025-07-08 00:19 | XMS_ITS | Encounter Summary ---
Author Organization [facility] Address [address] [place] [address] Care Team Providers Care Maintenance Man Name Role Phone Phuong Sol [facility] Primary Care Provider [phone] Encounter Details Date Type Department Care Team (Late Contact Info) Description 11/29/2023 PunchTabhart Message Enc [facility] [place] [address] Russ Mireles MD [address] [place] [address] prescription Social History Tobacco Use Types Packs/Day Years [...] Date Recorded Patient Health Questionnaire-2 Score 0 07/11/2023 Comments No Sex and Gender Information Value Date Recorded Sex Assigned at Female 08/28/2024 8:36 AM AFTER SCHOOL TEACHER Legal Sex Female 5:43 PM CDT Gender Identity Not on file Sexual Orientation Not on file documented as of this encounter Plan of Treatment Upcoming Encounters Date Type Department Care Team ([facility] Contact Info) Description 07/25/2025 10:40 AM AFTER SCHOOL TEACHER Office Visit [facility] [address] [place] [address] Phuong Sol FNP [address] [place] [address] 05/21/2026 9:45 AM CDT Office Visit [facility] [address] [place] [phone] Jose Alberto Caicedo MD [facility] [address] [place] [address] documented as of this encounter Visit Diagnoses Not on filedocumented in this encounter Additional Health Concerns Assessment Noted Time PHQ-9 Depression Total Score: 2 06/08/20 21 2:13 PM CDT documented as of this encounter Care Teams Maintenance Man Relationship Specialty Start Date End Date Phuong Sol FNP [address] [place] [address] PCP - General Nurse Practitioner Family 02/18/20 documented as of this encounter
--- OUTSIDE RECORDS SUMMARY | 2025-07-08 00:19 | XMS_ITS | Encounter Summary ---
Author Organization [facility] Address [address] [place] [address] Care Team Providers Care Comb Setter Name Role Phone Phuong Sol [facility] Primary Care Provider [phone] Encounter Details Date Type Department Care Team (Late Contact Info) Description 08/24/2022 T-Systemt Message Enc [facility] [address] [place] [address] Phuong Sol [facility] [address] [place], [place] [phone] mri Social History Tobacco Use Types Packs/Day Years [...] Sex Assigned at Female 08/28/2024 8:36 AM SEWING DEMONSTRATOR Legal Sex Female 5:43 PM CDT Gender Identity Not on file Sexual Orientation Not on file COVID-19 Exposure Response Date Recorded In the last 10 days, have yo u been in contact with someone who was confirmed or suspected to have Coronavirus/COVID-19? No / Unsure 08/18/2022 10:56 AM SEWING DEMONSTRATOR documented as of this encounter Plan of Treatment Upcoming Encounters Date Type Department Care Team (Late st Contact Info) Description 07/25/2025 10:40 AM SEWING DEMONSTRATOR Office Visit [facility] [address] [place] [address] Phuong Sol FNP [address] [place] [address] 05/21/2026 9:45 AM CDT [facility] [place] [facility] [address] [place] [phone] Jose Alberto Caicedo MD [facility] [address] [place] [address] documented as of this encounter Visit Diagnoses Not on filedocumented in this encounter Additional Health Concerns Assessment Noted Time PHQ-9 Depression Total Score: 2 06/08/20 21 2:13 PM CDT documented as of this encounter Care Teams Comb Setter Relationship Specialty Start Date End Date Phuong Sol FNP [address] [place] [address] PCP - General Nurse Practitioner Family 02/18/20 documented as of this encounter
--- OUTSIDE RECORDS SUMMARY | 2025-07-08 00:19 | XMS_ITS | Encounter Summary ---
Author Organization [facility] Address [address] [place] [address] Care Team Providers Care Teacher Instrumental Name Role Phone Phuong Sol [facility] Primary Care Provider [phone] [phone] Encounter Details Date Type Department Care Team (Late st Contact Info) Description 02/08/2023 MyChart Message Enc [facility] [address] [place], [place] [phone] [employer] Provider Air Quality Message Social History Tobacco Use Types Packs/Day Years [...] Sex Assigned at Female 08/28/2024 8:36 AM PRESSER MACHINE Legal Sex Female 5:43 PM CDT Gender Identity Not on file Sexual Orientation Not on file documented as of this encounter Plan of Treatment Upcoming Encounters Date Type Department Care Team (Late st Contact Info) Description 07/25/2025 10:40 AM PRESSER MACHINE Office Visit [facility] [address] [place] [phone] Phuong Sol [address] [place] [phone] 05/21/2026 9:45 AM CDT Office Visit [place] [address] [place] [phone] Jose Alberto Caicedo MD [address] [address] documented as of this encounter Visit Diagnoses Not on filedocumented in this encounter Additional Health Concerns Assessment Noted Time PHQ-9 Depression Total Score: 2 06/08/20 21 2:13 PM CDT documented as of this encounter Care Teams Teacher Instrumental Relationship Specialty Start Date End Date Phuong Sol FNP [address] [facility] [place] [address] PCP - General Nurse Practitioner Family 02/18/20 documented as of this encounter
--- OUTSIDE RECORDS SUMMARY | 2025-07-08 00:19 | XMS_ITS | Encounter Summary ---
Author Organization [facility] Address [address] [place] [address] Care Team Providers Care Wastewater Plant Civil Engineer Name Role Phone Phuong Sol [facility] Primary Care Provider [phone] Encounter Details Date Type Department Care Team (Late Contact Info) Description 06/10/2025 MyChart Message Enc [address] [place] [address] [address]uong Sol [address] [place] [phone] [place] chest scan without contrast Social History [...] Sex Assigned at Female 08/28/2024 8:36 AM AUTO JOB ESTIMATOR Legal Sex Female 5:43 PM CDT Gender Identity Not on file Sexual Orientation Not on file documented as of this encounter Plan of Treatment Upcoming Encounters Date Type Department Care Team (Late Contact Info) Description 07/25/2025 10:40 AM AUTO JOB ESTIMATOR Office Visit [address] [place] [address] Phuong Sol [address] [place] [address] 05/21/2026 9:45 AM CDT Office Visit [facility] [address] [place] [phone] Jose Alberto Caicedo MD [facility] [address] [place] [address] documented as of this encounter Visit Diagnoses Not on filedocumented in this encounter Additional Health Concerns Assessment Noted Time PHQ-9 Depression Total Score: 2 06/08/20 21 2:13 PM CDT documented as of this encounter Care Teams Wastewater Plant Civil Engineer Relationship Specialty Start Date End Date Phuong Sol FNP [address] [place] [address] PCP - General Nurse Practitioner Family 02/18/20 documented as of this encounter
--- OUTSIDE RECORDS SUMMARY | 2025-07-08 00:19 | XMS_ITS | Encounter Summary ---
Author Organization [facility] Address [address] [place] [address] Care Team Providers Care Morning Babysitter Name Role Phone Phuong Sol [facility] Primary Care Provider [phone] Encounter Details Date Type Department Care Team (Late st Contact Info) Description 07/12/2021 [employer] Message Enc [facility] [address] [place] [address] Phuong Sol [facility] [address] [place] [phone] appointment Social History Tobacco Use Types Packs/Day Years [...] Sex Assigned at Female 08/28/2024 8:36 AM BOX STRAPPER Legal Sex Female 5:43 PM CDT Gender Identity Not on file Sexual Orientation Not on file COVID-19 Exposure Response Date Recorded In the last month, have you been in contact with someone who was confirmed or suspected to have Coronavirus / COVID-19? No / Unsure 07/14/2021 1:17 PM BOX STRAPPER documented as of this encounter Plan of Treatment Upcoming Encounters Date Type Department Care Team (Late st Contact Info) Description 07/25/2025 10:40 AM BOX STRAPPER Office Visit [facility] [address] [place] [address] Phuong Sol FNP [address] [place] [address] 05/21/2026 9:45 AM CDT Office Visit [facility] [address] [place] [phone] Jose Alberto Caicedo MD [id number] [place] [address] documented as of this encounter Visit Diagnoses Not on filedocumented in this encounter Additional Health Concerns Infection Onset Date Last Indicated Resolved Time COVID-19 Rule Out 07/12/2021 07/12/2021 07/12/2021 1:34 PM BOX STRAPPER COVID-19 Rule Out 07/13/2021 07/13/2021 07/13/2021 6:58 PM BOX STRAPPER Assessment Noted Time PHQ-9 Depression Total Score: 2 06/08/20 21 2:13 PM CDT documented as of this encounter Care Teams Morning Babysitter Relationship Specialty Start Date End Date Phuong Sol FNP [address] [place] [address] PCP - General Nurse Practitioner Family 02/18/20 documented as of this encounter
--- OUTSIDE RECORDS SUMMARY | 2025-07-08 00:19 | XMS_ITS | Encounter Summary ---
Author Organization [facility] Address [address] [place] [address] Care Team Providers Care Advertising Writer Name Role Phone Phuong Sol [facility] Primary Care Provider [phone] Encounter Details Date Type Department Care Team (Late st Contact Info) Description 01/14/2025 IP [employer] Message Enc [facility] [address] [place] [address] Phuong Sol [facility] [address] [place], [place] [phone] covid shot Social History Tobacco Use Types Packs/Day Years [...] Sex Assigned at Female 08/28/2024 8:36 AM REFRACTORY WORKER Legal Sex Female 5:43 PM CDT Gender Identity Not on file Sexual Orientation Not on file documented as of this encounter Progress Notes * Sada Navarro LPN - 01/14/2025 1:16 PM CDT Please advise if ok for patient to have covid vaccine? documented in this encounter Plan of Treatment Upcoming Encounters Date Type Department Care Team (Late st Contact Info) Description 07/25/2025 10:40 AM REFRACTORY WORKER Office Visit [facility] [address] [place] [address] Phuong Sol FNP [address] [place] [address] 05/21/2026 9:45 AM CDT [facility] [address] [place] [phone] Jose Alberto Caicedo MD [address] [address] documented as of this encounter Visit Diagnoses Not on filedocumented in this encounter Additional Health Concerns Assessment Noted Time PHQ-9 Depression Total Score: 2 06/08/20 21 2:13 PM CDT documented as of this encounter Care Teams Advertising Writer Relationship Specialty Start Date End Date Phuong Sol FNP [address] [place] [address] PCP - General Nurse Practitioner Family 02/18/20 documented as of this encounter
--- OUTSIDE RECORDS SUMMARY | 2025-07-08 00:19 | XMS_ITS | Encounter Summary ---
Author Organization [facility] Address [address] [place] [address] Care Team Providers Care Fac Engineer Name Role Phone Jeffrey Boyd MD Primary Care Provider [phone] Phuong Sol Primary Care Provider [phone] Encounter Details Date Type Department Care Team (Late st Contact Info) Description 10/28/2017 Abstract [facility] CONVERSION [address] [place] [address] , Generic Conversion, Social History Tobacco Use Types Packs/Day Years Used Date Smoking Tobacco: Never Assessed Comments Unknown Sex and Gender Information Value Date Recorded Sex Assigned at Female 08/28/2024 8:36 AM PRIVATE EQUITY ANALYST Legal Sex Female 5:43 PM CDT Gender Identity Not on file Sexual Orientation Not on file documented as of this encounter Plan of Treatment Upcoming Encounters Date Type Department Care Team (Late st Contact Info) Description 07/25/2025 10:40 AM PRIVATE EQUITY ANALYST Office Visit [facility] [address] [place] [address] Phuong Sol FNP [address] [place] [address] 05/21/2026 9:45 AM CDT [facility] [address] [place] [phone] Jose Alberto Caicedo MD [facility] [address] [place] [address] documented as of this encounter Visit Diagnoses Not on filedocumented in this encounter Additional Health Concerns Infection Onset Date Last Indicated Resolved Time COVID-19 Rule Out 07/12/2021 07/12/2021 07/12/2021 1:34 PM PRIVATE EQUITY ANALYST COVID-19 Rule Out 07/13/2021 07/13/2021 07/13/2021 6:58 PM PRIVATE EQUITY ANALYST documented as of this encounter Care Teams Fac Engineer Relationship Specialty Start Date End Date Jeffrey Boyd MD [address] [place] [address] PCP - General FAMILY PRACTICE 06/20/11 02/17/20 Phuong Sol FNP [address] [facility] [address] [place] [address] PCP - General Nurse Practitioner Family 02/18/20 documented as of this encounter
--- OUTSIDE RECORDS SUMMARY | 2025-07-08 00:19 | XMS_ITS | Encounter Summary ---
Author Organization [facility] Address [address] [place] [address] Care Team Providers Care Head Charrer Name Role Phone Phuong Sol [facility] Primary Care Provider [phone] Encounter Details Date Type Department Care Team (Late Contact Info) Description 02/21/2022 MyChart Message Enc [facility] [address] [place] [phone] Phuong Sol [place] [address] [place] [phone] Blood test Social History Tobacco Use Types Packs/Day [...] Sex Assigned at Female 08/28/2024 8:36 AM COMPUTER LAB ASSISTANT Legal Sex Female 5:43 PM CDT Gender Identity Not on file Sexual Orientation Not on file documented as of this encounter Plan of Treatment Upcoming Encounters Date Type Department Care Team (Late Contact Info) Description 07/25/2025 10:40 AM COMPUTER LAB ASSISTANT Office Visit [facility] [address] [place] [phone] Phuong Sol FNP [address] [place] [address] 05/21/2026 9:45 AM CDT Office Visit [facility] [address] [place] [phone] Jose Alberto Caicedo MD [phone] [place] [address] documented as of this encounter Visit Diagnoses Not on filedocumented in this encounter Additional Health Concerns Assessment Noted Time PHQ-9 Depression Total Score: 2 06/08/20 21 2:13 PM CDT documented as of this encounter Care Teams Head Charrer Relationship Specialty Start Date End Date Phuong Sol FNP [address] [facility] [address] [place] [address] PCP - General Nurse Practitioner Family 02/18/20 documented as of this encounter
--- OUTSIDE RECORDS SUMMARY | 2025-07-08 00:19 | XMS_ITS | Encounter Summary ---
Author Organization [facility] Address [address] [place] [address] Care Team Providers Care Direct Service Worker Name Role Phone Phuogn Sol [facility] Primary Care Provider [phone] Encounter Details Date Type Department Care Team (Late Contact Info) Description 07/11/2021 [employer] Message Enc [facility] [address] [place] [address] Phuong Sol [facility] [address] [place], [place] [phone] cough Social History Tobacco Use Types Packs/Day Years [...] Sex Assigned at Female 08/28/2024 8:36 AM PLASTICS FABRICATOR AND ASSEMBLER Legal Sex Female 5:43 PM CDT Gender Identity Not on file Sexual Orientation Not on file COVID-19 Exposure Response Date Recorded In the last month, have you been in contact with someone who was confirmed or suspected to have Coronavirus / COVID-19? No / Unsure 07/14/2021 1:17 PM PLASTICS FABRICATOR AND ASSEMBLER documented as of this encounter Plan of Treatment Upcoming Encounters Date Type Department Care Team (Late Contact Info) Description 07/25/2025 10:40 AM PLASTICS FABRICATOR AND ASSEMBLER Office Visit [facility] [address] [place] [address] Phuong Sol FNP [address] [place] [address] 05/21/2026 9:45 AM CDT Office Visit [facility] [address] [place] [phone] Jose Alberto Caicedo MD [facility]. [address] [place] [address] documented as of this encounter Visit Diagnoses Not on filedocumented in this encounter Additional Health Concerns Infection Onset Date Last Indicated Resolved Time COVID-19 Rule Out 07/12/2021 07/12/2021 07/12/2021 1:34 PM PLASTICS FABRICATOR AND ASSEMBLER COVID-19 Rule Out 07/13/2021 07/13/2021 07/13/2021 6:58 PM PLASTICS FABRICATOR AND ASSEMBLER Assessment Noted Time PHQ-9 Depression Total Score: 2 06/08/20 21 2:13 PM CDT documented as of this encounter Care Teams Direct Service Worker Relationship Specialty Start Date End Date Phuong Sol FNP [address] [place] [address] PCP - General Nurse Practitioner Family 02/18/20 documented as of this encounter
[2025-07-08] MEDS: LACTATED RINGERS 1,000 ML 30 ML IV CONT ×2 (06:30→11:02)
[2025-07-08] MEDS: ACETAMINOPHEN 500 MG TABLET 1000 MG PO (07:05)
[2025-07-08] MEDS: TRANEXAMIC ACID 1,000MG/ISO100 1,000 MG/100 ML BAG 200 MG IVPB (07:05)
--- NOTE | 2025-07-08 07:12 | WPDHPUPDATE1 ---
History and Physical Update Update Date/Time: 07/08/25 07:12 History and Physical has been reviewed, including an updated exam of the patient. There are NO changes in the patient's condition. Risks, benefits, and alternatives have been discussed and questions answered. Patient agrees to proceed with procedure.
--- NOTE | 2025-07-08 07:23 | WPDANESEPPF ---
Anes - Initial Pre Proc Eval Procedure: Operation Date: 07/08/25 07:30 Proposed Procedures p Right Custom Total Hip Arthroplasty - Jeramie Rutledge MD Date/Time: 07/08/25 07:23 Surgeon: Jeramie Rutledge MD Pre Op Diagnosis: primary OA right hip Patient Data Age: 84 Gender: F Height: 1.6 m Weight: 91.1 kg Last Vital Signs Temp 97.9 F 07/08/25 07:07 Pulse 67 07/08/25 07:07 Resp 16 07/08/25 07:07 BP 177/80 H 07/08/25 07:07 Pulse Ox 98 07/08/25 07:07 O2 Del Method Room Air 07/08/25 07:07 Allergies Allergy/AdvReac Type Severity Reaction Status Date / Time lidocaine Allergy Intermediate lethargy Verified 07/08/25 07:01 Home Medications ?Medication ?Instructions ?Recorded ?Confirmed ?Type levothyroxine 125 mcg capsule 125 mcg PO DAILY 11/03/22 07/08/25 History omeprazole 20 mg capsule,delayed 20 mg PO DAILY 11/03/22 07/08/25 History release latanoprost 0.005 % eye drops 1 drp EACH EYE DAILY 01/22/25 07/08/25 History losartan 50 mg-hydrochlorothiazide 1 tablet PO DAILY 01/22/25 07/08/25 History 12.5 mg tablet rosuvastatin 5 mg tablet 5 mg PO DAILY 01/22/25 07/08/25 History vitamins A,C,T-rlrt-xxjwyg 4,296 1 cap PO BID 01/22/25 07/08/25 History mcg-226 mg-90 mg capsule (PreserVision AREDS) calcium carbonate 1,200 cap PO DAILY supplement 06/16/25 07/08/25 History nitroglycerin 0.4 mg sublingual 0.4 mg sublingual .as needed PRN 06/16/25 06/16/25 History tablet chest pain potassium chloride 10 mEq 10 meq PO DAILY 06/16/25 06/16/25 History tablet,extended release(part/cryst) aspirin 81 mg tablet,delayed 81 mg PO BID 14 days #28 tabs 07/08/25 Rx release oxycodone-acetaminophen 5 mg-325 1 - 2 tablet PO Q4-6H PRN pain #30 11/25/25 Rx mg tablet tabs Laboratory Tests 07/08/25 06:31 Blood Type Pending Antibody Screen Pending Patient hx anesthesia problems: none Family hx anesthesia problems: none Results Review: All pre-operative results and documents have been reviewed as part of the pre-operative evaluation. [facility] Past Medical History Medical History Primary osteoarthritis of right hip History of cataract Arthritis Spondylolisthesis, lumbar region Thyroid disorder CHF (congestive heart failure) Surgical History Surgical History History of cataract extraction Family History Family History Mother Hypertension Cerebrovascular accident Thyroid disorder Sibling Melanoma Hypertension Cervical cancer Grandparent Diabetes mellitus Social History Social History Social History: Shelley feels very confident in filling out medical forms and has NOT received assistance in the last 12 months from an organization or program to help with social issues. Smoking status: Never smoker Second hand tobacco smoke exposure: No Alcohol intake: current Alcohol use details: wine occasional Substance use: never Substance use type: does not use Do You Feel Safe in your Home?: Yes Lack of Transportation: No Lack of Food: Never True Current Housing: I Have Housing Concerned About Future Housing: No Difficulty Paying Gas/Electric Bills: No Difficulty Paying for Meds: No Currently Unemployed: No Education: High School Diploma/GED Difficulty w/ Childcare or Family Care: No Living arrangements: with family Additional living arrangements comments: Don File Occupation/Education: retired Spiritual care concerns: No Anes - Eval Final PreProcedure Day of Procedure 07/08/25 07:23 Patient weight: obese Heart: regular rate and rhythm Lungs: clear to auscultation Airway: Mallampati scale class II Neurological: alert and oriented Last oral intake: >/= 8 hours ASA classification: III Emergent: no Anesthetic plan: proceed Anesthesia type and monitoring: general ETT and standard monitoring Results Review: All pre-operative results and documents have been reviewed as part of the pre-operative evaluation. Informed Consent: The patient's anesthetic plan and its attendant risks and benefits were discussed with the patient/family/POA. Questions were solicited and answers provided to the satisfaction of the patient/family/POA.
[2025-07-08] MEDS: ceFAZolin 2 GM in SODIUM CHLORIDE 0.9% IV 50 ML 100 ML IVPB ×3 (07:29→23:04)
[2025-07-08] MEDS: SODIUM CHLORIDE 0.9% IV 37.7 ML, MORPHINE SULFATE INJ (*CRX) 2 MG, ROPivacaine HCL 1% 2... INFILTRATE (08:12)
[2025-07-08] MEDS: TRANEXAMIC ACID 1,000 MG/10 ML AMPUL 1000 MG IV PUSH (10:24)
[2025-07-08] MEDS: fentaNYL CITRATE INJ (*CRX) 100 MCG/2 ML VIAL 25 MCG IV PUSH ×6 (11:21→12:05)
[2025-07-08] MEDS: ONDANSETRON INJ 4 MG/2 ML VIAL IV PUSH ×2 (12:30→17:14)
--- NOTE | 2025-07-08 12:34 | PC.NURSE ---
This patient, Shelley Friedman, was admitted to 3 Med Surg Room 324-02 at 1234. Patient/family oriented to hospital policies and general routines including ID bracelet, bed and alarms, visiting hours, pain management, procedures, bathroom and other care routines, personal items, smoking policy, room service/diet, and visiting hours. Information on how to activate the Rapid Response Team has been discussed. Patient/Family are encouraged to report perceived risks to care and to ask questions if they do not understand what they are told or what they should do.
--- NOTE | 2025-07-08 13:15 | PCPTNOTE ---
attempted PT eval at 1300; pt refused due to nausea and sleepy. She has just been on the floor ~ 15 minutes.
--- NOTE | 2025-07-08 14:43 | PCOTNOTE ---
Attempted to see pt for OT evaluation. Pt is very groggy and unable to keep eyes open but states she is too nauseous and declines to attempt getting up at this time.
[2025-07-08] MEDS: SODIUM CHLORIDE 0.9% IV 1,000 ML 125 ML IV CONT (14:49)
[2025-07-08] MEDS: ACETAMINOPHEN 325 MG TABLET 650 MG PO ×2 (14:57→23:05)
--- NOTE | 2025-07-08 17:13 | W.PM.PROC2 ---
Procedure Note - Detailed Date of Procedure 07/08/25 Pre-op Diagnosis Right hip degenerative arthritis. Post-op Diagnosis Same Procedure Performed Right Custom Total Hip Arthroplasty Surgeon Jeramie Rutledge MD Meat Wrapper Doris Godoy PA-C Anesthesia General Findings Significant osteoporosis. Large acetabular cysts were bone grafted. Subtle nondisplaced 8mm fracture line suspected at the calcar after final stem insertion. The stem was stable. Prophylactic cable applied. Description of Procedure The patient was given preoperative antibiotics. A general anesthetic was administered. The patient was carefully placed in the lateral decubitus position with hip positioners. The shoulders and hips were carefully positioned for component and leg length positioning reference. The hip was prepped and draped in the usual sterile fashion. A longitudinal incision was created over the posterior aspect of the greater trochanter. Careful dissection was brought down through the deep fascia with electrocautery. A minimally invasive optimized posterior approach to the hip was performed. The short external rotators (piriformis spared) and capsule were taken down in an L-shaped capsulotomy. The tissue was tagged for later repair using number 2 high strength suture. The hip was dislocated. The femoral resection guide was placed. The neck cut was taking with the oscillating saw and the femoral head removed. Confirmation of appropriate bony resection performed with the patient specific clamshell guide. The acetabulum was carefully exposed. The inferior capsule was released. The labrum was resected. The acetabulum was sequentially reamed to 2 under the intended cup size. 2 large cysts in the center of the acetabulum were bone grafted. The cup was impacted into position with a good press-fit. Two supplemental screws were placed. Typical anatomic landmarks, including the bony contact points as well as the inferior transverse acetabular ligament were used to confirm cup positioning with preoperative templating. Attention was turned to the femur, which was carefully exposed. The reaming guide was placed and marked. The hip was reamed and then broached sequentially. Excellent press-fit was obtained with the broach. The hip was trialed. Measurements were utilized, including the lesser trochanter as well as the center of the femoral head and the tip of the trochanter, and excellent assessment of the offset and leg lengths were confirmed. The real component was impacted into position. Trialing confirmed appropriate leg length and offset with soft tissue balancing as well apparent feel of the leg, both at the knee and the heel. Soft tissues were assessed using the the iliotibial band. Reduction of the posterior capsule and external rotators were also used as a secondary assessment. There was a small fine line consistent with a possible nondisplaced fracture observed at the calcar. It was elected to put a Dall-Miles cable around the calcar. The hip was copiously irrigated with pulsatile lavage periodically throughout the procedure. The real ceramic femoral head was assembled and the hip reduced. The hip was stable throughout typical maneuvers, including extension, external rotation to 70 degrees, the position of sleep as well as flexion to 90 degrees with internal rotation past 35 degrees. The shake test confirmed stability without impingement. Osteophytes were removed as necessary. The short external rotators and capsule were repaired back to the posterior trochanter through drill holes. The deep fascia was repaired with running number 2 barbed suture, followed by 2-0 Stratafix suture and 3-0 Stratafix suture in the dermis. Steri-Strips were placed on the skin, followed by a sterile occlusive dressing. There were no complications. Meticulous hemostasis was maintained with the AquaMantys device. The patient was brought to the recovery room in stable condition. There were no complications. Physician access services assistant, Doris Godoy PA-C, required for surgery; including patient positioning, draping, tissue retraction, maintaining instrument position, hip dislocation/ relocation, wound closure, and dressing placement. Implants Conformist custom total hip arthroplasty system size 6 custom Actera femoral stem, 36 mm +0 Biolox femoral head, 50 mm Cordera acetabular component 2 supplemental screws, standard neutral liner. Estimated Blood Loss 200 Drains No Packing No Pathology None sent Complications No immediate complications Condition Stable Disposition PACU [facility] Billing Surgery - Charge Forward: Surgery Billing
[2025-07-08] MEDS: PROMETHAZINE HCL 25 MG/ML AMPUL 12.5 MG IV PUSH (21:08)
[2025-07-08] MEDS: LATANOPROST 0.005% OP SOLN 2.5 ML BTL 1 DROP EACH EYE (21:28)
[2025-07-08] MEDS: ASPIRIN 81 MG ENTERIC TABLET PO (22:52)
[2025-07-08] MEDS: FAMOTIDINE 20 MG TABLET PO (22:52)
[2025-07-09 00:37] VITALS: BP 157/83; PULSE 77; RESP 20; TEMP 36.5; O2SAT 97
[2025-07-09] MEDS: SODIUM CHLORIDE 0.9% IV 1,000 ML 125 ML IV CONT (01:38)
[2025-07-09 04:38] VITALS: BP 135/60; PULSE 73; RESP 18; TEMP 36.7; O2SAT 97
[2025-07-09 05:12] LABS: Hematocrit 36.3 % (37.0-47.0); Hemoglobin 11.6 g/dL (12.0-15.0); Immature Granulocyte Percent A 0.4 % (0-0.5); Lymphocytes Absolute Auto 2.16 K/mm3 (0.9-3.2); Mean Corpuscular HGB Conc 32.0 g/dl (32-36); Mean Corpuscular Hemoglobin 32.3 pg (26-34); Mean Corpuscular Volume 101.1 fl (80-100); Nucleated Red Blood Cells Absolute Auto 0.000 K/mm3 (0.0-0.012); Nucleated Red Blood Cells Perc 0.0 % (0.0-0.2); Platelet Count Result 205 k/mm3 (150-375); Red Blood Count 3.59 M/mm3 (4.2-5.4); White Blood Count 8.5 K/mm3 (4.5-10.0)
[2025-07-09 05:27] LABS: Anion Gap -1 mmol/L (4-12); Blood Urea Nitrogen 12 mg/dL (7-17); Calcium 7.8 mg/dL (8.4-10.2); Carbon Dioxide 28 mmol/L (22-30); Chloride 106 mmol/L (98-107); Estimated CRCL calculation 56 ml/min; Estimated Glomerular Filt Rate > 60; Glucose 125 mg/dL (65-110); Potassium 3.9 mmol/L (3.4-5.0); Sodium 133 mmol/L (137-145)
[2025-07-09] MEDS: ACETAMINOPHEN 325 MG TABLET 650 MG PO (06:34)
[2025-07-09] MEDS: ceFAZolin 2 GM in SODIUM CHLORIDE 0.9% IV 50 ML 100 ML IVPB (06:34)
[2025-07-09] MEDS: LEVOTHYROXINE SODIUM 125 MCG TABLET PO (06:34)
--- NOTE | 2025-07-09 07:36 | P.CONIM_ITS ---
Assessment and Plan Assessment and plan (1) Primary osteoarthritis of right hip: Code(s): M16.11 - Unilateral primary osteoarthritis, right hip Status: Chronic (2) Status post total hip replacement, right: Code(s): Z96.641 - Presence of right artificial hip joint Status: Acute (3) Orthopedic aftercare for joint replacement: Code(s): Z47.1 - Aftercare following joint replacement surgery Status: Acute (4) Spondylolisthesis, lumbar region: Code(s): M43.16 - Spondylolisthesis, lumbar region Status: Chronic (5) Hyperlipemia: Code(s): E78.5 - Hyperlipidemia, unspecified Status: Acute (6) GERD (gastroesophageal reflux disease): Code(s): K21.9 - Gastro-esophageal reflux disease without esophagitis Status: Acute Plan Shelley Friedman is a 84 year old female with PMH/of primary osteoarthritis, HTN, HLD, cataract removal, spondylolisthesis, lumbar, thyroid disorder, CHF admitted for rt hip degenerative arthritis to ortho services and had Rt Custom Total Hip Arthroplasty on 07/[address] Rutledge. EBL 200, No complications per report, pt tolerated procedure well. Pt is non smoker, drinks alcohol maybe once a month if that, no illicit drug use. #hld resume home statin # hypothyrodism resume home levothyroxine # chf (unspecified) # htn unsure when last echo was pt appears to be in no exacerbation, not fluid overloaded will resume losartan/hctz f/u with cardiology as an outpt 135/60, hr 73 - reviewed and stable cr/bun 0.67/12 # GERD -resume home omeprazole DVT prophylaxis per ortho HPI Date of Consult Consult date: 07/09/25 Requesting Physician: Jeramie Rutledge MD Primary Care Provider: Phuong Sol, [employer]PER[employer]ER[employer] Consult Narrative Reason for consult: med mngmnt Narrative: Shelley Friedman is a 84 year old female with PMH/of primary osteoarthritis, HTN, HLD, cataract removal, spondylolisthesis, lumbar, thyroid disorder, CHF admitted for rt hip degenerative arthritis to ortho services and had Rt Custom Total Hip Arthroplasty on 07/[address] Rutledge. EBL 200, No complications per report, pt tolerated procedure well. Pt is non smoker, drinks alcohol maybe once a month if that, no illicit drug use. Pt is alert and comfortable. Pain i stable. no n/v/d. Education completed on [facility] Past Medical History Medical History (Updated 07/09/25 @ 08:38 by Zeina Kern APRN) Primary osteoarthritis of right hip History of cataract Arthritis Spondylolisthesis, lumbar region Thyroid disorder CHF (congestive heart failure) Surgical History Surgical History (Updated 07/08/25 @ 07:16 by GRETCHEN Basilio) History of cataract extraction Family History Family History Mother Hypertension Cerebrovascular accident Thyroid disorder Sibling Melanoma Hypertension Cervical cancer Grandparent Diabetes mellitus Social History Social History Social History: Shelley feels very confident in filling out medical forms and has NOT received assistance in the last 12 months from an organization or program to help with social issues. Smoking status: Never smoker Second hand tobacco smoke exposure: No Alcohol intake: current Alcohol use details: wine occasional Substance use: never Substance use type: does not use Lack of Transportation: No Lack of Food: Never True Current Housing: I Have Housing Concerned About Future Housing: No Difficulty Paying Gas/Electric Bills: No Difficulty Paying for Meds: No Currently Unemployed: No Education: High School Diploma/GED Difficulty w/ Childcare or Family Care: No Living arrangements: with family Additional living arrangements comments: [employer] Occupation/Education: retired Spiritual care concerns: No Meds Home Medications and Allergies Home Medications ?Medication ?Instructions ?Recorded ?Confirmed ?Type levothyroxine 125 mcg capsule 125 mcg PO DAILY 11/03/2 3 07/08/25 History omeprazole 20 mg capsule,delayed 20 mg PO DAILY 07/08/25 History release latanoprost 0.005 % eye drops 1 drp EACH EYE DAILY 07/0807/08/25 History losartan 50 mg-hydrochlorothiazide 1 tablet PO DAILY 0 01/22/25 07/08/25 History 12.5 mg tablet rosuvastatin 5 mg tablet 5 mg PO DAILY 01/22/2507/08 History vitamins A,C,K-aarj-btdtnp 4,296 1 cap PO BID 01/22/25 07/08/25 History mcg-226 mg-90 mg capsule (PreserVision AREDS) calcium carbonate 1,200 cap PO DAILY supplemen t 06/16/25 07/08/25 History nitroglycerin 0.4 mg sublingual 0.4 mg sublingual .as needed PRN 06/16/25 06/16/25 History tablet chest pain potassium chloride 10 mEq 10 meq PO DAILY 06/16/2511/05 History tablet,extended release(part/cryst) aspirin 81 mg tablet,delayed 81 mg PO BID 14 days #28 tabs 07/08/25 Rx release oxycodone-acetaminophen 5 mg-325 1 - 2 tablet PO Q4-6H PRN pain #30 07/08/25 Rx mg tablet tabs Allergies Allergy/AdvReac Type Severity Reaction Status Date / Time lidocaine Allergy Intermediate lethargy Verified 07/08/25 15:50 Vital Signs Vital Signs - 24 hr 07/08/25 11:02 07/08/25 11:15 07/08/25 11:30 Temperature 98.2 F Pulse Rate 85 85 76 Respiratory Rate 15 14 12 Blood Pressure 129/47 L 124/55 L 110/57 L Pulse Oximetry 100 100 98 Oxygen Delivery Simple Face Mask Simple Face Mask Nasal Cannula Oxygen Flow Rate 8 8 2 Fraction of Inspired Oxygen 07/08/25 11:45 07/08/25 12:00 07/08/25 12:12 Temperature Pulse Rate 75 70 69 Respiratory Rate 12 12 12 Blood Pressure 106/52 L 131/70 130/68 Pulse Oximetry 99 99 98 Oxygen Delivery Nasal Cannula Nasal Cannula Nasal Cannula Oxygen Flow Rate 2 2 2 Fraction of Inspired Oxygen 07/08/25 12:35 07/08/25 12:50 07/08/25 12:59 Temperature 97.4 F L 97.7 F Pulse Rate 65 62 58 L Respiratory Rate 20 18 18 Blood Pressure 141/64 H 143/59 H 139/59 L Pulse Oximetry 97 97 99 Oxygen Delivery Oxygen Flow Rate Fraction of Inspired Oxygen 07/08/25 13:55 07/08/25 17:59 07/08/25 20:00 Temperature 97.4 F L 97.5 F L Pulse Rate 63 70 Respiratory Rate 18 18 Blood Pressure 144/56 H 157/63 H Pulse Oximetry 100 96 Oxygen Delivery Room Air Oxygen Flow Rate Fraction of Inspired Oxygen 07/08/25 20:17 07/08/25 21:28 07/09/25 00:37 Temperature 97.8 F 97.7 F Pulse Rate 71 80 77 Respiratory Rate 20 18 20 Blood Pressure 171/73 H 157/83 H Pulse Oximetry 90 98 97 Oxygen Delivery Room Air Oxygen Flow Rate Fraction of Inspired Oxygen 21 07/09/25 04:38 Temperature 98.0 F Pulse Rate 73 Respiratory Rate 18 Blood Pressure 135/60 Pulse Oximetry 97 Oxygen Delivery Oxygen Flow Rate Fraction of Inspired Oxygen Results Labs 07/09/25 04:42 07/09/25 04:42 Labs: Short CBC 07/09/25 Range/Units 04:42 WBC 8.5 (4.5-10.0) K/mm3 Hgb 11.6 L (12.0-15.0) g/dL Hct 36.3 L (37.0-47.0) % Plt Count 205 (150-375) k/mm3 BMP 07/09/25 04:42 Sodium 133 L Potassium 3.9 Chloride 106 Carbon Dioxide 28 BUN 12 D Creatinine 0.67 L Glucose 125 H Calcium 7.8 L
[2025-07-09] MEDS: LOSARTAN POTASSIUM 50 MG TABLET PO (08:00)
[2025-07-09] MEDS: PANTOPRAZOLE 40 MG TABLET PO (08:00)
[2025-07-09] MEDS: ROSUVASTATIN 5 MG TABLET PO (08:00)
[2025-07-09] MEDS: SENNA/DOCUSATE SODIUM TABLET 2 TAB PO (08:00)
[2025-07-09] MEDS: FAMOTIDINE 20 MG TABLET PO (08:00)
[2025-07-09] MEDS: ASPIRIN 81 MG ENTERIC TABLET PO (08:00)
[2025-07-09] MEDS: OPTI-GEN TAB 1 TABLET PO (08:00)
--- NOTE | 2025-07-09 08:04 | PM.PNORT ---
Progress Note: A&P Assessment and Plan (1) Status post total hip replacement, right: Code(s): Z96.641 - Presence of right artificial hip joint Status: Acute Assessment and Plan: Postop day 1: Right total hip arthroplasty. Patient tolerated procedure well. Subtle nondisplaced 8mm fracture line suspected at the calcar after final stem insertion. The stem was stable. Prophylactic cable applied. She is partial weight bearing with a walker for 6 weeks. Pain manageable with pain medication. No numbness or tingling. Appreciate hospitalist consult. Ordered artificial tears for her eye. We had a lengthy discussion regarding postoperative wound care, limitations, expectations, and exercises. Patient shows good understanding. She has had initial physical therapy and is tolerating it well. Subjective Subjective Date/Time Seen: 07/09/25 08:04 Interval history: Patient resting comfortably. No distal numbness or tingling. Nausea has improved. She does have a watery eye that is painful. Notes she had it yesterday as well but it improved after it was flushed. Review of Systems Review of Systems: All systems reviewed & are unremarkable except as noted in HPI and below Exam Narrative: Overweight 84 y/o female. Resting comfortably in bed. Wearing compression socks bilaterally. Dressing dry and intact with no drainage. Mild swelling. No ecchymosis. No erythema. No hematoma. Range of motion limited due to pain. Calf nontender. Thigh nontender. Neurologic status intact. No varicosities. Distal pulses palpable. Objective Data Vital Signs Vital Signs: Vital Signs - 24 hr 07/08/25 11:02 07/08/25 11:15 07/08/25 11:30 Temperature 98.2 F Pulse Rate 85 85 76 Respiratory Rate 15 14 12 Blood Pressure 129/47 L 124/55 L 110/57 L Pulse Oximetry 100 100 98 Oxygen Delivery Simple Face Mask Simple Face Mask Nasal Cannula Oxygen Flow Rate 8 8 2 Fraction of Inspired Oxygen 07/08/25 11:45 07/08/25 12:00 07/08/25 12:12 Temperature Pulse Rate 75 70 69 Respiratory Rate 12 12 12 Blood Pressure 106/52 L 131/70 130/68 Pulse Oximetry 99 99 98 Oxygen Delivery Nasal Cannula Nasal Cannula Nasal Cannula Oxygen Flow Rate 2 2 2 Fraction of Inspired Oxygen 07/08/25 12:35 07/08/25 12:50 07/08/25 12:59 Temperature 97.4 F L 97.7 F Pulse Rate 65 62 58 L Respiratory Rate 20 18 18 Blood Pressure 141/64 H 143/59 H 139/59 L Pulse Oximetry 97 97 99 Oxygen Delivery Oxygen Flow Rate Fraction of Inspired Oxygen 07/08/25 13:55 07/08/25 17:59 07/08/25 20:00 Temperature 97.4 F L 97.5 F L Pulse Rate 63 70 Respiratory Rate 18 18 Blood Pressure 144/56 H 157/63 H Pulse Oximetry 100 96 Oxygen Delivery Room Air Oxygen Flow Rate Fraction of Inspired Oxygen 07/08/25 20:17 07/08/25 21:28 07/09/25 00:37 Temperature 97.8 F 97.7 F Pulse Rate 71 80 77 Respiratory Rate 20 18 20 Blood Pressure 171/73 H 157/83 H Pulse Oximetry 90 98 97 Oxygen Delivery Room Air Oxygen Flow Rate Fraction of Inspired Oxygen 21 07/09/25 04:38 Temperature 98.0 F Pulse Rate 73 Respiratory Rate 18 Blood Pressure 135/60 Pulse Oximetry 97 Oxygen Delivery Oxygen Flow Rate Fraction of Inspired Oxygen Intake/Output Intake/Output: Intake & Output 07/06/25 07/07/25 07/08/25 07/09/25 23:59 23:59 23:59 23:59 Intake Total 1470 200 Balance 1470 200 Meds/Results Medications: Active Medications Generic Name Dose Route Start Last Admin Trade Name Freq PRN Reason Stop Dose Admin Acetaminophen 650 mg 07/08/25 12:00 07/09/25 06:34 Acetaminophen 325 Mg Tablet PO 650 mg Q6HR LOS Administration Aspirin 81 mg 07/08/25 20:00 07/09/25 08:00 Aspirin 81 Mg Enteric Tablet PO 81 mg Q12HR LOS Administration Cyclobenzaprine HCl 5 mg 07/08/25 12:14 Cyclobenzaprine Hcl 5 Mg Tablet PO Q8H PRN Muscle Spasm Diphenhydramine HCl 25 mg 07/08/25 12:14 Diphenhydramine Hcl Inj 50 Mg/Ml Vial IV PUSH Q6H PRN Itching Famotidine 20 mg 07/08/25 21:00 07/09/25 08:00 Famotidine 20 Mg Tablet PO 20 mg Q12HR LOS Administration Hydrochlorothiazide 12.5 mg 07/08/25 17:00 07/09/25 08:00 Hydrochlorothiazide 12.5 Mg Capsule PO 12.5 mg QAM LOS Administration Hydromorphone HCl 1 mg 07/08/25 12:14 Hydromorphone Hcl Inj (*Crx) 1 Mg/Ml Syr IV PUSH Q2H PRN Breakthrough Pain Rated 7-10 or NPO Hydromorphone HCl 0.5 mg 07/08/25 12:14 Hydromorphone Hcl Inj (*Crx) 1 Mg/Ml Syr IV PUSH Q2H PRN Breakthrough Pain Rated 4-6 or NPO Ibuprofen 800 mg in 200 mls @ 400 mls/hr 07/08/25 12:14 Caldolor 800 Mg/200 Ml IVPB Q6H PRN Breakthrough Pain Rated 1-3 or NPO Latanoprost 1 drop 07/08/25 21:00 07/08/25 21:28 Latanoprost 0.005% Op Soln 2.5 Ml Btl EACH EYE 1 drop HS LOS Administration Levothyroxine Sodium 125 mcg 07/09/25 06:30 07/09/25 06:34 Levothyroxine Sodium 125 Mcg Tablet PO 125 mcg DAILY@0630 LOS Administration Losartan Potassium 50 mg 07/08/25 17:00 07/09/25 08:00 Losartan Potassium 50 Mg Tablet PO 50 mg QAM [facility] Administration Multivitamins/Minerals 1 tablet 07/08/25 17:00 07/09/25 08:00 Opti-Gen Tab PO 1 tablet BID LOS Administration Naloxone HCl 0.1 mg 07/08/25 12:14 Naloxone Hcl 0.4 Mg/Ml Vial IV PUSH Q2M PRN Opiate Reversal Nitroglycerin 0.4 mg 07/08/25 12:16 Nitroglycerin Sl 0.4 Mg Tablet SUBLINGUAL Q5MIN PRN Chest Pain Ondansetron HCl 4 mg 07/08/25 12:14 07/08/25 17:14 Ondansetron Inj 4 Mg/2 Ml Vial IV PUSH 4 mg Q4H PRN Administration Nausea And Vomiting Oxycodone HCl 2.5 mg 07/08/25 12:14 Oxycodone Hcl (*Crx) 2.5 Mg Tab Ir PO Q4H PRN Pain Rated 4-6 Oxycodone HCl 5 mg 07/08/25 12:14 Oxycodone Hcl (*Crx) 5 Mg Tab Ir PO Q4H PRN Pain Rated 7-10 Pantoprazole Sodium 40 mg 07/08/25 17:00 07/09/25 08:00 Pantoprazole 40 Mg Tablet PO 40 mg QAM LOS Administration Polyethylene Glycol 17 gm 07/08/25 17:00 07/09/25 08:00 Polyethylene Glycol 3350 17 Gm Powd.Pack PO Not Given QAM LOS Promethazine HCl 12.5 mg 07/08/25 19:25 07/08/25 21:08 Promethazine Hcl 25 Mg/Ml Ampul IV PUSH 12.5 mg Q4H PRN Administration Nausea And Vomiting Rosuvastatin Calcium 5 mg 07/08/25 17:00 07/09/25 08:00 Rosuvastatin 5 Mg Tablet PO 5 mg DAILY LOS Administration Senna/Docusate Sodium 2 tab 07/08/25 17:00 07/09/25 08:00 Senna/Docusate Sodium Tablet PO 2 tab BID LOS Administration Tramadol HCl 50 mg 07/08/25 12:14 Tramadol Hcl (*Crx) 50 Mg Tablet PO Q4H PRN Pain Rated 1-3 Radiology Results: ITS Impressions Intraoperative X-Ray 07/08/25 11:01 IMPRESSION: 1. Right total hip arthroplasty with intertrochanteric cerclage wire in near-anatomic alignment. See procedure note for further detail. Hip X-Ray 07/08/25 11:33 Impression: No acute fracture or malalignment. Labs Labs: Laboratory Results - last 24 hr 07/09/25 04:42 WBC 8.5 RBC 3.59 L Hgb 11.6 L Hct 36.3 L MCV 101.1 H MCH 32.3 MCHC 32.0 RDW 13.4 Plt Count 205 MPV 9.8 Immature Gran % (Auto) 0.4 Neut % (Auto) 64.5 Lymph % (Auto) 25.3 [place] % (Auto) 9.6 H Eos % (Auto) 0.1 Baso % (Auto) 0.1 L Lymph # (Auto) 2.16 [place] # (Auto) 0.8 H Eos # (Auto) 0.0 Baso # (Auto) 0.0 Abs Immat Gran (auto) 0.03 Absolute Neuts (auto) 5.5 Absolute Nucleated RBC 0.000 Nucleated RBC % 0.0 Sodium 133 L Potassium 3.9 Chloride 106 Carbon Dioxide 28 Anion Gap -1 L BUN 12 D Creatinine 0.67 L Estim Creat Clear Calc 56 Estimated GFR > 60 Glucose 125 H Calcium 7.8 L
[2025-07-09 09:42] VITALS: BP 132/64; PULSE 75; RESP 19; TEMP 36.7; O2SAT 96
== END 2025-07-09 12:10 | disposition home or self-care (01) ==
LOC: ANHSURGERY 07:15 → ANH3MEDSUR 12:17
PROVIDERS: Physician Assistant Surgical; PCP Registered Nurse; Visit Provider Orthopaedic Surgery
PROC: (CPT 27130; principal; 2025-07-08 07:30)
DX: M16.11 Unilateral primary osteoarthritis, right hip (principal); M71.351 Other bursal cyst, right hip; M81.0 Age-related osteoporosis without current pathological fracture; M43.16 Spondylolisthesis, lumbar region; E07.9 Disorder of thyroid, unspecified; I50.9 Heart failure, unspecified; E66.9 Obesity, unspecified; Z68.35 Body mass index [BMI] 35.0-35.9, adult; Z79.899 Other long term (current) drug therapy; Z79.82 Long term (current) use of aspirin; Z79.891 Long term (current) use of opiate analgesic; Z98.890 Other specified postprocedural states; Z80.8 Family history of malignant neoplasm of other organs or systems; Z80.49 Family history of malignant neoplasm of other genital organs
CPT/HCPCS: 27130; 36415; 73502; 80048; 85025; 86850; 86900; 86901; 97110; 97161; 97166; 97535; 99199; J0690; A9270; C1713; C1776; J0166; J1171; J1885; J2270; J2405; J2550; J2704; J2795; J3010; J3290; J7030; J7120